=== PATIENT | female | born 2000 | race African-American/Black ===

== ENCOUNTER 2024-07-09 19:36 | Inpatient (IN) | payer OTHER ==
[~2024-07-09] VITALS: Ht 170.2 cm; Wt 108.8 kg
[2024-07-09 20:38] LABS: BASO # 0.1 10^3/uL (0.0-0.2); BASO % 0.5 % (0.0-1.0); EOS # 0.2 10^3/uL (0.0-0.5); EOS % 1.5 % (0.0-3.0); HEMATOCRIT 41.2 % (36.0-47.0); HEMOGLOBIN 14.7 g/dl (12.0-15.5); LYMPH % 26.7 % (24.0-44.0); MEAN CORPUSCULAR HEMOGLOBIN 31.1 pg (27.0-33.0); MEAN CORPUSCULAR HGB CONC 35.7 g/dl (32.0-36.5); MEAN CORPUSCULAR VOLUME 87.1 fl (80.0-96.0); MONO # 0.6 10^3/uL (0.0-0.8); MONO % 3.8 % (2.0-8.0); NEUTROPHILS # 10.1 10^3/uL (1.5-8.5); PLATELET COUNT, AUTOMATED 325 10^3/uL (150-450); RED BLOOD COUNT 4.73 10^6/uL (4.00-5.40); WHITE BLOOD COUNT 15.1 10^3/uL (4.0-10.0)
[2024-07-09 21:01] LABS: LIPASE 259 U/L (12-53)
[2024-07-09 21:32] LABS: ALBUMIN 3.9 G/DL (3.2-5.2); ALKALINE PHOSPHATASE 83 U/L (35-104); ALT/SGPT 30 U/L (7.0-40); AST/SGOT 25 U/L (<34); BILIRUBIN,DIRECT < 0.1 MG/DL (<0.4); BILIRUBIN,TOTAL 0.2 MG/DL (0.3-1.2); BLOOD UREA NITROGEN 8 MG/DL (9-23); CALCIUM LEVEL 9.5 MG/DL (8.5-10.1); CARBON DIOXIDE LEVEL 24 MMOL/L (20-31); CHLORIDE LEVEL 105 MMOL/L (98-107); GLOMERULAR FILTRATION RATE > 60.0 (>60); GLUCOSE, FASTING 122 MG/DL (60-100); POTASSIUM SERUM 4.1 MMOL/L (3.5-5.1); SODIUM LEVEL 138 MMOL/L (136-145); TOTAL PROTEIN 8.2 G/DL (5.7-8.2)
[2024-07-09] MEDS ORDERED: ISOVUE-370 76% 100ML VIAL As Ordered ONE (21:51)
[2024-07-09] MEDS: NS (Normal Saline) 0.9% 1,000 ML IV SCH (23:12)
[2024-07-09] MEDS: MORPHINE 2 MG/ML 1ML VIAL IV ONE (23:13)
[2024-07-09] MEDS: ONDANSETRON 4MG 2ML VIAL IV ONE (23:13)
[2024-07-09 23:31] LABS: HCG, SERUM QUANTITATIVE < 2.6 MIU/ML (<4.2)
[2024-07-10] MEDS ORDERED: NS (Normal Saline) 0.9% 1,000 ML IV SCH (01:00)
[2024-07-10 01:30] LABS: CHOLESTEROL LEVEL 278 MG/DL (<200); CHOLESTEROL RISK RATIO 9.65 (<5); HDL CHOLESTEROL 28.8 MG/DL (>40); NON-HDL-C 249.2 MG/DL; TRIGLYCERIDES LEVEL 2007 MG/DL (<150)
[2024-07-10] MEDS: MORPHINE 2 MG/ML 1ML VIAL IV ONE (01:52)
[2024-07-10 02:27] LABS: LDH LACTATE DEHYDROGENASE 358 U/L (120-246)
[2024-07-10 02:33] LABS: FREE T4 1.43 NG/DL (0.89-1.76); THYROID STIMULATING HORMONE 0.735 uIU/ML (0.55-4.78)
[2024-07-10] MEDS: ATORVASTATIN 20 MG TAB PO ONE (03:26)
[2024-07-10] MEDS: ASPIRIN 81MG CHEW TABLET PO ONE (03:27)
[2024-07-10] MEDS: KCL 20MEQ IN D5/0.45NS 1000ML 1,000 ML IV SCH ×3 (03:27→22:34)
[2024-07-10] MEDS: INSULIN REGULAR IN 0.9 % NACL 100 UNIT in IV 1 EA IV STA (03:34)
[2024-07-10] MEDS ORDERED: MOM 30ML SUSPENSION UDC PO PRN (04:10)
[2024-07-10] MEDS ORDERED: INSULIN IV RATE CHANGE DOCUMENTATION ML/HR XX SCH (04:10)
[2024-07-10] MEDS: INSULIN REGULAR IN 0.9 % NACL 100 UNIT in IV 1 EA IV SCH (05:07)
[2024-07-10 07:41] VITALS: BP 138/86; TEMP 98.7; O2SAT 98
[2024-07-10] MEDS: MORPHINE 2 MG/ML 1ML VIAL IV PRN (08:21)
[2024-07-10] MEDS ORDERED: MULT1TAB16 PO (08:48)
[2024-07-10] MEDS ORDERED: ASHW300C2 PO (08:48)
[2024-07-10] MEDS ORDERED: FERR325T82 PO (08:48)
[2024-07-10] MEDS ORDERED: ASCO1TAB5 PO (08:48)
[2024-07-10] MEDS ORDERED: HOME MED LIST COMPLETE! XX SCH (08:50)
[2024-07-10] MEDS: ENOXAPARIN 40MG/0.4ML SYRINGE (J1650 PER 10MG) SC SCH (09:39)
[2024-07-10 09:50] LABS: BLOOD UREA NITROGEN < 5 MG/DL (9-23); CALCIUM LEVEL 8.5 MG/DL (8.5-10.1); CARBON DIOXIDE LEVEL 23 MMOL/L (20-31); CHLORIDE LEVEL 106 MMOL/L (98-107); CREATININE FOR GFR 0.43 MG/DL (0.55-1.30); GLOMERULAR FILTRATION RATE > 60.0 (>60); GLUCOSE, FASTING 92 MG/DL (60-100); PHOSPHORUS LEVEL 2.6 MG/DL (2.5-4.9); POTASSIUM SERUM 3.7 MMOL/L (3.5-5.1); SODIUM LEVEL 138 MMOL/L (136-145); TRIGLYCERIDES LEVEL 1715 MG/DL (<150)
[2024-07-10] MEDS ORDERED: GLUCOSE 4 GM CHEW PO PRN (11:05)
[2024-07-10] MEDS ORDERED: GLUCAGON INJ 1MG VIAL SC PRN (11:05)
[2024-07-10] MEDS: ONDANSETRON 4MG 2ML VIAL IV PRN (11:40)
[2024-07-10] MEDS: MORPHINE 4 MG/ML 1ML VIAL IV PRN (11:41)
[2024-07-10 12:00] VITALS: BP 123/58; TEMP 98.2; O2SAT 97
[2024-07-10 13:15] LABS: BLOOD UREA NITROGEN < 5 MG/DL (9-23); CALCIUM LEVEL 8.3 MG/DL (8.5-10.1); CARBON DIOXIDE LEVEL 22 MMOL/L (20-31); CHLORIDE LEVEL 107 MMOL/L (98-107); GLOMERULAR FILTRATION RATE > 60.0 (>60); GLUCOSE, FASTING 100 MG/DL (60-100); PHOSPHORUS LEVEL 3.4 MG/DL (2.5-4.9); POTASSIUM SERUM 3.8 MMOL/L (3.5-5.1); SODIUM LEVEL 139 MMOL/L (136-145)
[2024-07-10] MEDS: POTASSIUM CHLORIDE 10MEQ SR TABLET PO ONE (15:59)
[2024-07-10 16:00] VITALS: BP 121/65; TEMP 98.2; O2SAT 99
[2024-07-10] MEDS: ACETAMINOPHEN 325 MG TAB PO PRN (17:04)
[2024-07-10 17:36] LABS: BLOOD UREA NITROGEN < 5 MG/DL (9-23); CALCIUM LEVEL 8.5 MG/DL (8.5-10.1); CARBON DIOXIDE LEVEL 24 MMOL/L (20-31); CHLORIDE LEVEL 107 MMOL/L (98-107); CREATININE FOR GFR 0.42 MG/DL (0.55-1.30); GLOMERULAR FILTRATION RATE > 60.0 (>60); GLUCOSE, FASTING 77 MG/DL (60-100); PHOSPHORUS LEVEL 3.5 MG/DL (2.5-4.9); POTASSIUM SERUM 3.9 MMOL/L (3.5-5.1); SODIUM LEVEL 140 MMOL/L (136-145); TRIGLYCERIDES LEVEL 829 MG/DL (<150)
[2024-07-10] MEDS: FENOFIBRATE 145MG TABLET (TRICOR) PO ONE (18:29)
[2024-07-10 20:04] VITALS: BP 139/75; TEMP 99.6; O2SAT 97
[2024-07-10] MEDS: POTASSIUM CHLORIDE 10MEQ SR TABLET PO SCH (20:52)
[2024-07-10 21:50] LABS: HEMOGLOBIN A1c 6.1 % (4.0-6.0)
[2024-07-10 21:59] LABS: BLOOD UREA NITROGEN < 5 MG/DL (9-23); CALCIUM LEVEL 8.6 MG/DL (8.5-10.1); CARBON DIOXIDE LEVEL 22 MMOL/L (20-31); CHLORIDE LEVEL 109 MMOL/L (98-107); CREATININE FOR GFR 0.48 MG/DL (0.55-1.30); GLOMERULAR FILTRATION RATE > 60.0 (>60); GLUCOSE, FASTING 91 MG/DL (60-100); PHOSPHORUS LEVEL 3.5 MG/DL (2.5-4.9); POTASSIUM SERUM 4.1 MMOL/L (3.5-5.1); SODIUM LEVEL 142 MMOL/L (136-145); TRIGLYCERIDES LEVEL 555 MG/DL (<150)
[2024-07-10] MEDS: DEXTROSE 50% 50ML SYRINGE IV PRN (22:33)
[2024-07-11 00:27] VITALS: BP 138/77; TEMP 101; O2SAT 99
[2024-07-11 02:01] LABS: CALCIUM LEVEL 9.1 MG/DL (8.5-10.1); CARBON DIOXIDE LEVEL 23 MMOL/L (20-31); CHLORIDE LEVEL 106 MMOL/L (98-107); CREATININE FOR GFR 0.49 MG/DL (0.55-1.30); GLOMERULAR FILTRATION RATE > 60.0 (>60); GLUCOSE, FASTING 63 MG/DL (60-100); PHOSPHORUS LEVEL 3.2 MG/DL (2.5-4.9); POTASSIUM SERUM 4.4 MMOL/L (3.5-5.1); SODIUM LEVEL 139 MMOL/L (136-145)
[2024-07-11 02:03] LABS: BLOOD UREA NITROGEN < 5 MG/DL (9-23); TRIGLYCERIDES LEVEL 416 MG/DL (<150)
[2024-07-11 02:15] VITALS: TEMP 100.3; O2SAT 96
[2024-07-11 04:00] VITALS: BP 125/63; TEMP 98.7; O2SAT 96
[2024-07-11 05:48] LABS: BLOOD UREA NITROGEN < 5 MG/DL (9-23); CALCIUM LEVEL 8.9 MG/DL (8.5-10.1); CARBON DIOXIDE LEVEL 24 MMOL/L (20-31); CHLORIDE LEVEL 107 MMOL/L (98-107); CREATININE FOR GFR 0.51 MG/DL (0.55-1.30); GLOMERULAR FILTRATION RATE > 60.0 (>60); GLUCOSE, FASTING 62 MG/DL (60-100); POTASSIUM SERUM 3.9 MMOL/L (3.5-5.1); SODIUM LEVEL 140 MMOL/L (136-145)
[2024-07-11 08:00] VITALS: BP 119/68; TEMP 99.4; O2SAT 98
[2024-07-11 11:27] VITALS: BP 123/68; TEMP 98.1; O2SAT 98
[2024-07-11] MEDS ORDERED: PERCOCET 5MG/325MG TAB PO PRN (12:10)
[2024-07-11 12:56] LABS: BASO # 0.1 10^3/uL (0.0-0.2); BASO % 0.4 % (0.0-1.0); EOS # 0.3 10^3/uL (0.0-0.5); EOS % 2.2 % (0.0-3.0); LYMPH # 3.9 10^3/uL (1.5-5.0); LYMPH % 30.5 % (24.0-44.0); MEAN CORPUSCULAR HEMOGLOBIN 29.4 pg (27.0-33.0); MEAN CORPUSCULAR HGB CONC 33.4 g/dl (32.0-36.5); MEAN CORPUSCULAR VOLUME 87.8 fl (80.0-96.0); MONO # 0.9 10^3/uL (0.0-0.8); MONO % 6.8 % (2.0-8.0); NEUTROPHILS # 7.6 10^3/uL (1.5-8.5); NEUTROPHILS % 59.6 % (36.0-66.0); PLATELET COUNT, AUTOMATED 279 10^3/uL (150-450); RED BLOOD COUNT 3.95 10^6/uL (4.00-5.40); WHITE BLOOD COUNT 12.7 10^3/uL (4.0-10.0)
[2024-07-11 12:58] LABS: HEMATOCRIT 34.7 % (36.0-47.0); HEMOGLOBIN 11.6 g/dl (12.0-15.5)
[2024-07-11 13:20] LABS: BLOOD UREA NITROGEN < 5 MG/DL (9-23); CALCIUM LEVEL 8.9 MG/DL (8.5-10.1); CARBON DIOXIDE LEVEL 24 MMOL/L (20-31); CHLORIDE LEVEL 107 MMOL/L (98-107); CREATININE FOR GFR 0.53 MG/DL (0.55-1.30); GLOMERULAR FILTRATION RATE > 60.0 (>60); GLUCOSE, FASTING 98 MG/DL (60-100); PHOSPHORUS LEVEL 4.3 MG/DL (2.5-4.9); POTASSIUM SERUM 4.2 MMOL/L (3.5-5.1); SODIUM LEVEL 141 MMOL/L (136-145)
[2024-07-11] MEDS: ATORVASTATIN 20 MG TAB PO SCH (13:39)
[2024-07-11] MEDS: FENOFIBRATE 145MG TABLET (TRICOR) PO SCH (16:16)
[2024-07-11] MEDS ORDERED: FENO145T7 PO (17:52)
[2024-07-11] MEDS ORDERED: ATOR40TA75 PO (17:52)
[2024-07-11] MEDS ORDERED: LOVA1CAP17 PO (17:52)
[2024-07-11 18:44] VITALS: BP 132/79; TEMP 96.8
[2024-07-12 04:00] VITALS: BP 126/77; TEMP 97; O2SAT 99
[2024-07-12 11:30] VITALS: BP 130/78; TEMP 97.9; O2SAT 97
== END 2024-07-12 12:55 | disposition home health service (06) | DRG 438 ==
LOC: M ED 19:36 → M ED INP 07-10 04:09 → M ICU 07-10 07:35 → M MS4PR 07-11 11:20 → M MS5PR 07-11 18:37
PROVIDERS: ADMIT Internal Medicine Pulmonary Disease; ATTEND Internal Medicine
DX: K85.90 Acute pancreatitis without necrosis or infection, unspecified (principal); U07.1 COVID-19; R73.03 Prediabetes; E78.1 Pure hyperglyceridemia

== ENCOUNTER 2024-08-23 00:13 | Inpatient (IN) | payer OTHER ==
[~2024-08-23] VITALS: Ht 170.2 cm; Wt 107.0 kg
[~2024-08-23 00:13] MED LIST: ASCO1TAB5 PO; ASHW300C2 PO; ATOR40TA75 PO; FENO145T7 PO; FERR325T82 PO; LOVA1CAP17 PO; MULT1TAB16 PO
[2024-08-23 01:20] LABS: BASO # 0.1 10^3/uL (0.0-0.2); BASO % 0.4 % (0.0-1.0); HEMATOCRIT 39.6 % (36.0-47.0); HEMOGLOBIN 14.2 g/dl (12.0-15.5); LYMPH % 16.2 % (24.0-44.0); MEAN CORPUSCULAR HEMOGLOBIN 30.6 pg (27.0-33.0); MEAN CORPUSCULAR HGB CONC 35.9 g/dl (32.0-36.5); MEAN CORPUSCULAR VOLUME 85.3 fl (80.0-96.0); MONO # 0.5 10^3/uL (0.0-0.8); MONO % 4.3 % (2.0-8.0); NEUTROPHILS % 78.7 % (36.0-66.0); PLATELET COUNT, AUTOMATED 373 10^3/uL (150-450); RED BLOOD COUNT 4.64 10^6/uL (4.00-5.40); WHITE BLOOD COUNT 12.6 10^3/uL (4.0-10.0)
[2024-08-23 01:35] LABS: LIPASE 311 U/L (12-53)
[2024-08-23 01:40] LABS: ALKALINE PHOSPHATASE 69 U/L (35-104); ALT/SGPT 27 U/L (7.0-40); BILIRUBIN,DIRECT < 0.1 MG/DL (<0.4); BILIRUBIN,TOTAL 0.3 MG/DL (0.3-1.2); BLOOD UREA NITROGEN 8 MG/DL (9-23); CALCIUM LEVEL 8.4 MG/DL (8.5-10.1); CARBON DIOXIDE LEVEL 20 MMOL/L (20-31); CHLORIDE LEVEL 102 MMOL/L (98-107); CREATININE FOR GFR 0.41 MG/DL (0.55-1.30); GLOMERULAR FILTRATION RATE > 60.0 (>60); GLUCOSE, FASTING 161 MG/DL (60-100); POTASSIUM SERUM 3.8 MMOL/L (3.5-5.1); SODIUM LEVEL 133 MMOL/L (136-145); TOTAL PROTEIN 7.9 G/DL (5.7-8.2)
[2024-08-23 01:48] LABS: HCG, SERUM QUALITATIVE NEGATIVE (NEGATIVE)
[2024-08-23] MEDS ORDERED: ISOVUE-370 76% 100ML VIAL As Ordered ONE (03:48)
[2024-08-23] MEDS: ONDANSETRON 4MG 2ML VIAL IV ONE (04:11)
[2024-08-23] MEDS: MORPHINE 4 MG/ML 1ML VIAL IV ONE (04:11)
[2024-08-23] MEDS: NS (Normal Saline) 0.9% 1,000 ML IV ONE (04:29)
[2024-08-23] MEDS: HYDROMORPHONE HCL 0.5 MG/ 0.5 ML SYRINGE IV PRN (05:12)
[2024-08-23] MEDS: NS (Normal Saline) 0.9% 1,000 ML IV SCH (05:46)
[2024-08-23] MEDS: cefTRIAXone SOD 1 GM in DEXTROSE 5% (D5W) ADV/MINI-BAG 50 ML IV ONE (05:46)
[2024-08-23 06:41] LABS: AST/SGOT 23 U/L (<34)
[2024-08-23 06:42] LABS: CHOLESTEROL LEVEL 314 MG/DL (<200); HDL CHOLESTEROL 26.6 MG/DL (>40); NON-HDL-C 287.4 MG/DL; TRIGLYCERIDES LEVEL 1756 MG/DL (<150)
[2024-08-23] MEDS ORDERED: INSULIN IV RATE CHANGE DOCUMENTATION ML/HR XX SCH ×3 (07:10→10:45)
[2024-08-23] MEDS ORDERED: INSULIN REGULAR IN 0.9 % NACL 100 UNIT in IV 1 EA IV SCH (07:10)
[2024-08-23] MEDS: INSULIN REGULAR IN 0.9 % NACL 100 UNIT in IV 1 EA IV SCH ×2 (08:00→11:25)
[2024-08-23] MEDS ORDERED: GLUCAGON INJ 1MG VIAL SC PRN ×2 (08:10→18:45)
[2024-08-23] MEDS ORDERED: GLUCOSE 4 GM CHEW PO PRN ×2 (08:10→18:45)
[2024-08-23] MEDS ORDERED: DEXTROSE 50% 50ML SYRINGE IV PRN ×3 (08:10→18:45)
[2024-08-23] MEDS: LR 1,000 ML IV SCH (08:19)
[2024-08-23] MEDS ORDERED: FENO145T7 PO (08:26)
[2024-08-23] MEDS ORDERED: MACR100C43 PO (08:26)
[2024-08-23] MEDS ORDERED: ATOR40TA75 PO (08:26)
[2024-08-23] MEDS ORDERED: HOME MED LIST COMPLETE! XX SCH (08:30)
[2024-08-23] MEDS: ENOXAPARIN 40MG/0.4ML SYRINGE (J1650 PER 10MG) SC SCH (08:57)
[2024-08-23 09:30] VITALS: BP 130/65; TEMP 98.8; O2SAT 96
[2024-08-23] MEDS: KETOROLAC 30 MG/ML 1ML VIAL IV PRN (09:39)
[2024-08-23] MEDS: ONDANSETRON 4MG 2ML VIAL IV PRN (09:39)
[2024-08-23] MEDS: D5W/0.9% SODIUM CHLORIDE 1,000 ML IV SCH (11:24)
[2024-08-23] MEDS: ATORVASTATIN 20 MG TAB PO SCH (11:24)
[2024-08-23] MEDS: FENOFIBRATE 145MG TABLET (TRICOR) PO SCH (11:24)
[2024-08-23 12:00] VITALS: BP 113/56; TEMP 98.9; O2SAT 96
[2024-08-23 12:42] LABS: LIPASE 229 U/L (12-53); TRIGLYCERIDES LEVEL 500 MG/DL (<150)
[2024-08-23 12:46] LABS: ALBUMIN 3.1 G/DL (3.2-5.2); BLOOD UREA NITROGEN 7 MG/DL (9-23); CALCIUM LEVEL 7.9 MG/DL (8.5-10.1); CARBON DIOXIDE LEVEL 24 MMOL/L (20-31); CHLORIDE LEVEL 108 MMOL/L (98-107); CREATININE FOR GFR 0.58 MG/DL (0.55-1.30); GLOMERULAR FILTRATION RATE > 60.0 (>60); GLUCOSE, FASTING 83 MG/DL (60-100); PHOSPHORUS LEVEL 3.1 MG/DL (2.5-4.9); POTASSIUM SERUM 3.4 MMOL/L (3.5-5.1); SODIUM LEVEL 140 MMOL/L (136-145)
[2024-08-23 12:47] LABS: AMYLASE 216 U/L (30-118)
[2024-08-23] MEDS: KCL 20MEQ IN D5/NS 1000ML 1,000 ML IV SCH (13:46)
[2024-08-23] MEDS: MORPHINE 2 MG/ML 1ML VIAL IV PRN (15:17)
[2024-08-23 16:15] VITALS: BP 118/61; TEMP 100.2; O2SAT 94
[2024-08-23] MEDS: ACETAMINOPHEN 325 MG TAB PO PRN (17:13)
[2024-08-23 18:39] LABS: LIPASE 218 U/L (12-53); TRIGLYCERIDES LEVEL 403 MG/DL (<150)
[2024-08-23 18:45] LABS: AMYLASE 221 U/L (30-118)
[2024-08-23 20:00] VITALS: BP 109/61; TEMP 99.2; O2SAT 96
[2024-08-23] MEDS: INSULIN LISPRO (NovoLOG) PER UNIT SC SCH (20:15)
[2024-08-24] VITALS (8 sets, daily range): BP systolic 118–145; BP diastolic 65–77; TEMP 98.2–101.8; O2SAT 93–98
[2024-08-24 01:07] LABS: TRIGLYCERIDES LEVEL 262 MG/DL (<150)
[2024-08-24 01:08] LABS: LIPASE 187 U/L (12-53)
[2024-08-24 01:09] LABS: AMYLASE 173 U/L (30-118)
[2024-08-24 01:15] LABS: ALBUMIN 2.8 G/DL (3.2-5.2); BLOOD UREA NITROGEN 5 MG/DL (9-23); CALCIUM LEVEL 7.3 MG/DL (8.5-10.1); CARBON DIOXIDE LEVEL 23 MMOL/L (20-31); CHLORIDE LEVEL 110 MMOL/L (98-107); CREATININE FOR GFR 0.69 MG/DL (0.55-1.30); GLOMERULAR FILTRATION RATE > 60.0 (>60); GLUCOSE, FASTING 140 MG/DL (60-100); PHOSPHORUS LEVEL 1.4 MG/DL (2.5-4.9); POTASSIUM SERUM 3.8 MMOL/L (3.5-5.1); SODIUM LEVEL 141 MMOL/L (136-145)
[2024-08-24] MEDS: cefTRIAXone SOD 1 GM in DEXTROSE 5% (D5W) ADV/MINI-BAG 50 ML IV SCH (04:55)
[2024-08-24] MEDS: NEUTRA-PHOS 1.5 GM PACKET PO SCH (08:22)
[2024-08-24 08:26] LABS: BASO % 0.2 % (0.0-1.0); EOS # 0.1 10^3/uL (0.0-0.5); EOS % 1.1 % (0.0-3.0); HEMATOCRIT 32.9 % (36.0-47.0); LYMPH # 2.2 10^3/uL (1.5-5.0); LYMPH % 19.2 % (24.0-44.0); MEAN CORPUSCULAR HEMOGLOBIN 29.4 pg (27.0-33.0); MEAN CORPUSCULAR HGB CONC 33.7 g/dl (32.0-36.5); MEAN CORPUSCULAR VOLUME 87.3 fl (80.0-96.0); MONO # 0.7 10^3/uL (0.0-0.8); MONO % 6.3 % (2.0-8.0); NEUTROPHILS # 8.2 10^3/uL (1.5-8.5); NEUTROPHILS % 72.8 % (36.0-66.0); PLATELET COUNT, AUTOMATED 259 10^3/uL (150-450); RED BLOOD COUNT 3.77 10^6/uL (4.00-5.40); WHITE BLOOD COUNT 11.3 10^3/uL (4.0-10.0)
[2024-08-24 08:28] LABS: HEMOGLOBIN 11.1 g/dl (12.0-15.5)
[2024-08-24] MEDS: LR 1,000 ML IV SCH (08:36)
[2024-08-24 09:05] LABS: ALBUMIN 2.7 G/DL (3.2-5.2); ALKALINE PHOSPHATASE 48 U/L (35-104); ALT/SGPT 14 U/L (7.0-40); AST/SGOT 15 U/L (<34); BILIRUBIN,TOTAL 0.4 MG/DL (0.3-1.2); BLOOD UREA NITROGEN < 5 MG/DL (9-23); CALCIUM LEVEL 7.6 MG/DL (8.5-10.1); CARBON DIOXIDE LEVEL 20 MMOL/L (20-31); CHLORIDE LEVEL 111 MMOL/L (98-107); CREATININE FOR GFR 0.56 MG/DL (0.55-1.30); GLOMERULAR FILTRATION RATE > 60.0 (>60); GLUCOSE, FASTING 160 MG/DL (60-100); MAGNESIUM LEVEL 1.7 MG/DL (1.8-2.4); POTASSIUM SERUM 3.9 MMOL/L (3.5-5.1); SODIUM LEVEL 140 MMOL/L (136-145); TOTAL PROTEIN 6.1 G/DL (5.7-8.2)
[2024-08-24 09:08] LABS: KETONE, URINE AUTO RFX NEGATIVE (NEGATIVE); LEUKOCYTE ESTERASE UR AUTO RFX NEGATIVE (NEGATIVE); MUCUS, URINE RFX SMALL (NEGATIVE); NITRITE, URINE AUTO RFX NEGATIVE (NEGATIVE); RBC, URINE AUTO RFX 0 /HPF (0-3); SQUAM EPITHELIAL CELL UR AURFX 2 /HPF (0-6); WBC, URINE AUTO RFX 2 /HPF (0-3)
[2024-08-24 09:43] LABS: HEMOGLOBIN A1c 6.2 % (4.0-6.0)
[2024-08-24] MEDS: MAG SULF 1GM/100ML (MAG RUN) 1 GM in IV 1 EA IV SCH (11:10)
[2024-08-24 12:58] LABS: TRIGLYCERIDES LEVEL 287 MG/DL (<150)
[2024-08-24 13:00] LABS: AMYLASE 165 U/L (30-118)
[2024-08-24 13:01] LABS: BLOOD UREA NITROGEN < 5 MG/DL (9-23); CALCIUM LEVEL 8.3 MG/DL (8.5-10.1); CARBON DIOXIDE LEVEL 21 MMOL/L (20-31); CHLORIDE LEVEL 111 MMOL/L (98-107); CREATININE FOR GFR 0.61 MG/DL (0.55-1.30); GLOMERULAR FILTRATION RATE > 60.0 (>60); GLUCOSE, FASTING 80 MG/DL (60-100); PHOSPHORUS LEVEL 1.8 MG/DL (2.5-4.9); POTASSIUM SERUM 3.8 MMOL/L (3.5-5.1); SODIUM LEVEL 141 MMOL/L (136-145)
[2024-08-24] MEDS: MORPHINE 2 MG/ML 1ML VIAL IV PRN (13:50)
[2024-08-24] MEDS ORDERED: hydrOXYzine 50 MG TAB PO PRN (15:35)
[2024-08-25 03:46] VITALS: BP 142/74; TEMP 99.5; O2SAT 97
[2024-08-25] MEDS: LevoFLOXacin 750 MG TABLET PO SCH (05:49)
[2024-08-25 05:58] VITALS: TEMP 100.6; O2SAT 96
[2024-08-25 07:16] LABS: BASO % 0.2 % (0.0-1.0); EOS # 0.3 10^3/uL (0.0-0.5); EOS % 2.4 % (0.0-3.0); HEMATOCRIT 29.9 % (36.0-47.0); LYMPH # 3.2 10^3/uL (1.5-5.0); LYMPH % 25.9 % (24.0-44.0); MEAN CORPUSCULAR HEMOGLOBIN 28.8 pg (27.0-33.0); MEAN CORPUSCULAR HGB CONC 33.4 g/dl (32.0-36.5); MEAN CORPUSCULAR VOLUME 86.2 fl (80.0-96.0); MONO # 0.7 10^3/uL (0.0-0.8); MONO % 5.7 % (2.0-8.0); NEUTROPHILS % 65.4 % (36.0-66.0); PLATELET COUNT, AUTOMATED 259 10^3/uL (150-450); RED BLOOD COUNT 3.47 10^6/uL (4.00-5.40); WHITE BLOOD COUNT 12.2 10^3/uL (4.0-10.0)
[2024-08-25 07:32] VITALS: BP 136/81; TEMP 99.4; O2SAT 96
[2024-08-25 07:43] LABS: ALBUMIN 2.6 G/DL (3.2-5.2); ALKALINE PHOSPHATASE 67 U/L (35-104); ALT/SGPT 15 U/L (7.0-40); AST/SGOT 16 U/L (<34); BILIRUBIN,DIRECT 0.2 MG/DL (<0.4); BILIRUBIN,TOTAL 0.6 MG/DL (0.3-1.2); BLOOD UREA NITROGEN < 5 MG/DL (9-23); CALCIUM LEVEL 8.3 MG/DL (8.5-10.1); CARBON DIOXIDE LEVEL 24 MMOL/L (20-31); CHLORIDE LEVEL 110 MMOL/L (98-107); CHOLESTEROL LEVEL 170 MG/DL (<200); CHOLESTEROL RISK RATIO 9.09 (<5); GLOMERULAR FILTRATION RATE > 60.0 (>60); GLUCOSE, FASTING 106 MG/DL (60-100); HDL CHOLESTEROL 18.7 MG/DL (>40); LDL CHOLESTEROL 92.7 MG/DL (<100); MAGNESIUM LEVEL 1.8 MG/DL (1.8-2.4); NON-HDL-C 151.3 MG/DL; POTASSIUM SERUM 3.6 MMOL/L (3.5-5.1); SODIUM LEVEL 141 MMOL/L (136-145); TOTAL PROTEIN 6.1 G/DL (5.7-8.2); TRIGLYCERIDES LEVEL 293 MG/DL (<150)
[2024-08-25] MEDS: ATORVASTATIN 20 MG TAB PO SCH (08:15)
[2024-08-25 10:35] LABS: PHOSPHORUS LEVEL 2.3 MG/DL (2.5-4.9)
[2024-08-25] MEDS: PANTOPRAZOLE 40MG TAB (PROTONIX) PO SCH (10:37)
[2024-08-25] MEDS ORDERED: LOVA1CAP17 PO (11:21)
[2024-08-25 12:00] VITALS: BP 136/74; TEMP 98; O2SAT 96
[2024-08-25 19:32] VITALS: BP 132/73; TEMP 98.3; O2SAT 96
[2024-08-25 23:06] VITALS: BP 133/66; TEMP 100.6; TEMP 101; O2SAT 98
[2024-08-26] VITALS (9 sets, daily range): BP systolic 121–140; BP diastolic 61–74; TEMP 96.6–101.4; O2SAT 95–97
[2024-08-26 05:46] LABS: BASO % 0.3 % (0.0-1.0); EOS # 0.3 10^3/uL (0.0-0.5); EOS % 2.2 % (0.0-3.0); HEMATOCRIT 31.6 % (36.0-47.0); HEMOGLOBIN 10.6 g/dl (12.0-15.5); LYMPH # 3.4 10^3/uL (1.5-5.0); LYMPH % 26.8 % (24.0-44.0); MEAN CORPUSCULAR HEMOGLOBIN 29.1 pg (27.0-33.0); MEAN CORPUSCULAR HGB CONC 33.5 g/dl (32.0-36.5); MEAN CORPUSCULAR VOLUME 86.8 fl (80.0-96.0); MONO # 0.9 10^3/uL (0.0-0.8); MONO % 6.8 % (2.0-8.0); NEUTROPHILS # 7.9 10^3/uL (1.5-8.5); NEUTROPHILS % 62.9 % (36.0-66.0); PLATELET COUNT, AUTOMATED 298 10^3/uL (150-450); RED BLOOD COUNT 3.64 10^6/uL (4.00-5.40); WHITE BLOOD COUNT 12.6 10^3/uL (4.0-10.0)
[2024-08-26 06:11] LABS: BLOOD UREA NITROGEN 7 MG/DL (9-23); CALCIUM LEVEL 8.4 MG/DL (8.5-10.1); CARBON DIOXIDE LEVEL 22 MMOL/L (20-31); CHLORIDE LEVEL 108 MMOL/L (98-107); CHOLESTEROL LEVEL 154 MG/DL (<200); CREATININE FOR GFR 0.61 MG/DL (0.55-1.30); GLOMERULAR FILTRATION RATE > 60.0 (>60); GLUCOSE, FASTING 117 MG/DL (60-100); HDL CHOLESTEROL 20.8 MG/DL (>40); LDL CHOLESTEROL 90.8 MG/DL (<100); MAGNESIUM LEVEL 1.8 MG/DL (1.8-2.4); NON-HDL-C 133.2 MG/DL; PHOSPHORUS LEVEL 3.8 MG/DL (2.5-4.9); POTASSIUM SERUM 3.4 MMOL/L (3.5-5.1); SODIUM LEVEL 141 MMOL/L (136-145); TRIGLYCERIDES LEVEL 212 MG/DL (<150)
[2024-08-26] MEDS: POTASSIUM CHLORIDE 10MEQ SR TABLET PO ONE (07:53)
[2024-08-26 11:20] LABS: RSV AMPLIFICATION NEGATIVE (NEGATIVE)
[2024-08-26 13:56] LABS: PROCALCITONIN 0.06 ng/ml
[2024-08-26] MEDS ORDERED: AMPICILLIN SOD/SULBACTAM SOD 3 GM in DEXTROSE 5% (D5W) MINI-BAG PLU 100 ML IV SCH (14:00)
[2024-08-26 14:08] LABS: PROCALCITONIN 0.12 ng/ml
[2024-08-26 14:08] LABS: PROCALCITONIN 0.09 ng/ml
[2024-08-26 14:09] LABS: C REACTIVE PROTEIN QUANTITATIV 12.28 MG/DL (<1.0)
[2024-08-26 14:11] LABS: PROCALCITONIN 0.14 ng/ml
[2024-08-26 14:20] LABS: C REACTIVE PROTEIN QUANTITATIV 15.79 MG/DL (<1.0)
[2024-08-26 14:20] LABS: C REACTIVE PROTEIN QUANTITATIV 15.02 MG/DL (<1.0)
[2024-08-26] MEDS ORDERED: ACETAMINOPHEN 325 MG TAB PO PRN (14:30)
[2024-08-26] MEDS: ACETAMINOPHEN 500 MG TAB PO SCH (15:00)
[2024-08-26] MEDS: ACETAMINOPHEN 325 MG TAB PO PRN (20:45)
[2024-08-27] VITALS (7 sets, daily range): BP systolic 119–139; BP diastolic 72–87; TEMP 98.1–101.2; O2SAT 96–99
[2024-08-27 05:02] LABS: BASO # 0.1 10^3/uL (0.0-0.2); BASO % 0.4 % (0.0-1.0); EOS # 0.3 10^3/uL (0.0-0.5); EOS % 2.2 % (0.0-3.0); HEMATOCRIT 31.1 % (36.0-47.0); HEMOGLOBIN 10.6 g/dl (12.0-15.5); LYMPH # 3.3 10^3/uL (1.5-5.0); LYMPH % 22.7 % (24.0-44.0); MEAN CORPUSCULAR HEMOGLOBIN 29.3 pg (27.0-33.0); MEAN CORPUSCULAR HGB CONC 34.1 g/dl (32.0-36.5); MEAN CORPUSCULAR VOLUME 85.9 fl (80.0-96.0); MONO # 1.1 10^3/uL (0.0-0.8); MONO % 7.3 % (2.0-8.0); NEUTROPHILS # 9.5 10^3/uL (1.5-8.5); NEUTROPHILS % 66.1 % (36.0-66.0); PLATELET COUNT, AUTOMATED 338 10^3/uL (150-450); RED BLOOD COUNT 3.62 10^6/uL (4.00-5.40); WHITE BLOOD COUNT 14.4 10^3/uL (4.0-10.0)
[2024-08-27 05:21] LABS: BLOOD UREA NITROGEN 8 MG/DL (9-23); CALCIUM LEVEL 8.6 MG/DL (8.5-10.1); CARBON DIOXIDE LEVEL 21 MMOL/L (20-31); CHLORIDE LEVEL 106 MMOL/L (98-107); CREATININE FOR GFR 0.59 MG/DL (0.55-1.30); GLOMERULAR FILTRATION RATE > 60.0 (>60); GLUCOSE, FASTING 127 MG/DL (60-100); MAGNESIUM LEVEL 1.8 MG/DL (1.8-2.4); POTASSIUM SERUM 3.8 MMOL/L (3.5-5.1); SODIUM LEVEL 139 MMOL/L (136-145)
[2024-08-27 05:42] LABS: C REACTIVE PROTEIN QUANTITATIV 12.48 MG/DL (<1.0)
[2024-08-28 03:12] VITALS: BP 140/86; TEMP 99.8; O2SAT 96
[2024-08-28 04:15] VITALS: TEMP 99.3
[2024-08-28 07:31] LABS: BASO # 0.1 10^3/uL (0.0-0.2); BASO % 0.4 % (0.0-1.0); EOS # 0.3 10^3/uL (0.0-0.5); EOS % 2.1 % (0.0-3.0); HEMATOCRIT 32.9 % (36.0-47.0); HEMOGLOBIN 11.1 g/dl (12.0-15.5); LYMPH # 3.8 10^3/uL (1.5-5.0); MEAN CORPUSCULAR HEMOGLOBIN 29.2 pg (27.0-33.0); MEAN CORPUSCULAR HGB CONC 33.7 g/dl (32.0-36.5); MEAN CORPUSCULAR VOLUME 86.6 fl (80.0-96.0); MONO # 0.9 10^3/uL (0.0-0.8); MONO % 5.8 % (2.0-8.0); NEUTROPHILS # 10.5 10^3/uL (1.5-8.5); NEUTROPHILS % 66.1 % (36.0-66.0); PLATELET COUNT, AUTOMATED 394 10^3/uL (150-450); WHITE BLOOD COUNT 15.9 10^3/uL (4.0-10.0)
[2024-08-28 07:33] VITALS: BP 118/65; TEMP 98.1; O2SAT 98
[2024-08-28 07:59] LABS: BLOOD UREA NITROGEN 12 MG/DL (9-23); CALCIUM LEVEL 8.7 MG/DL (8.5-10.1); CARBON DIOXIDE LEVEL 23 MMOL/L (20-31); CHLORIDE LEVEL 105 MMOL/L (98-107); CREATININE FOR GFR 0.64 MG/DL (0.55-1.30); GLOMERULAR FILTRATION RATE > 60.0 (>60); GLUCOSE, FASTING 103 MG/DL (60-100); POTASSIUM SERUM 4.1 MMOL/L (3.5-5.1); SODIUM LEVEL 141 MMOL/L (136-145)
[2024-08-28 08:32] LABS: CHOLESTEROL LEVEL 155 MG/DL (<200); CHOLESTEROL RISK RATIO 7.82 (<5); HDL CHOLESTEROL 19.8 MG/DL (>40); LDL CHOLESTEROL 95.4 MG/DL (<100); NON-HDL-C 135.2 MG/DL; TRIGLYCERIDES LEVEL 199 MG/DL (<150)
[2024-08-28 08:44] LABS: C REACTIVE PROTEIN QUANTITATIV 12.26 MG/DL (<1.0)
[2024-08-28] MEDS ORDERED: ACET-683 PO (15:30)
[2024-08-28] MEDS ORDERED: FENO145T7 PO (15:30)
[2024-08-28] MEDS ORDERED: ATOR80TA59 PO (15:31)
[2024-08-28 16:00] VITALS: BP 136/64; TEMP 98; O2SAT 100
== END 2024-08-28 17:05 | disposition home or self-care (01) | DRG 438 ==
LOC: EDBD 00:13 → M ED 00:13 → M ED INP 07:36 → M ICU 09:16 → M PCU 08-24 16:43
PROVIDERS: ADMIT Internal Medicine Pulmonary Disease; ATTEND Internal Medicine
DX: K85.90 Acute pancreatitis without necrosis or infection, unspecified (principal); J18.9 Pneumonia, unspecified organism; J98.11 Atelectasis; E87.6 Hypokalemia; F41.9 Anxiety disorder, unspecified; E83.42 Hypomagnesemia; E78.1 Pure hyperglyceridemia; E83.39 Other disorders of phosphorus metabolism; R73.03 Prediabetes; F17.290 Nicotine dependence, other tobacco product, uncomplicated; Z79.899 Other long term (current) drug therapy; D64.9 Anemia, unspecified; K21.9 Gastro-esophageal reflux disease without esophagitis

== ENCOUNTER 2024-09-02 19:23 | Emergency (ER) | payer OTHER ==
[~2024-09-02] VITALS: Ht 170.2 cm; Wt 105.2 kg
[~2024-09-02 19:23] MED LIST changes: +ACET-683 PO; +ATOR80TA59 PO; +MACR100C43 PO
[2024-09-02 19:28] VITALS: TEMP 98.5
[2024-09-02 19:59] LABS: KETONE, URINE AUTO RFX NEGATIVE (NEGATIVE); LEUKOCYTE ESTERASE UR AUTO RFX NEGATIVE (NEGATIVE); NITRITE, URINE AUTO RFX NEGATIVE (NEGATIVE); RBC, URINE AUTO RFX 0 /HPF (0-3); SQUAM EPITHELIAL CELL UR AURFX 0 /HPF (0-6); WBC, URINE AUTO RFX 1 /HPF (0-3)
[2024-09-02 23:36] VITALS: BP 126/77; O2SAT 98
== END 2024-09-02 23:38 | disposition home or self-care (01) ==
LOC: M ED 19:23
DX: R31.9 Hematuria, unspecified (principal); Z97.5 Presence of (intrauterine) contraceptive device; F17.200 Nicotine dependence, unspecified, uncomplicated; Z79.899 Other long term (current) drug therapy

== ENCOUNTER 2025-02-20 23:22 | Inpatient (IN) | payer OTHER ==
[~2025-02-20] VITALS: Ht 170.2 cm; Wt 113.8 kg
[2025-02-20] MEDS ORDERED: VITA1CAP25 PO (23:37)
[2025-02-20] MEDS ORDERED: METF-838 PO (23:37)
[2025-02-21] VITALS (7 sets, daily range): BP systolic 125–129; BP diastolic 68–97; TEMP 97.3–101.8; O2SAT 85–100
[2025-02-21 01:06] LABS: BASO # 0.1 10^3/uL (0.0-0.2); BASO % 0.4 % (0.0-1.0); EOS # 0.2 10^3/uL (0.0-0.5); EOS % 1.2 % (0.0-3.0); LYMPH # 3.8 10^3/uL (1.5-5.0); LYMPH % 27.4 % (24.0-44.0); MONO # 0.6 10^3/uL (0.0-0.8); MONO % 4.1 % (2.0-8.0); NEUTROPHILS # 9.1 10^3/uL (1.5-8.5); NEUTROPHILS % 66.5 % (36.0-66.0); PLATELET COUNT, AUTOMATED 358 10^3/uL (150-450)
[2025-02-21] MEDS: ONDANSETRON 4MG 2ML VIAL IV ONE (01:22)
[2025-02-21] MEDS: KETOROLAC 30 MG/ML 1 ML VIAL IV ONE (01:22)
[2025-02-21] MEDS: NS (Normal Saline) 0.9% 1,000 ML IV ONE ×2 (01:23→08:42)
[2025-02-21 02:03] LABS: AST/SGOT 52 U/L (<34); CALCIUM LEVEL 8.8 MG/DL (8.5-10.1); CARBON DIOXIDE LEVEL 21 MMOL/L (20-31); CHLORIDE LEVEL 100 MMOL/L (98-107); CREATININE FOR GFR 0.33 MG/DL (0.55-1.30); GLOMERULAR FILTRATION RATE > 90.0 (>60); POTASSIUM SERUM 4.8 MMOL/L (3.5-5.1); SODIUM LEVEL 130 MMOL/L (136-145)
[2025-02-21 02:27] LABS: ALT/SGPT 47 U/L (7.0-40)
[2025-02-21] MEDS ORDERED: ISOVUE-370 76% 100 ML VIAL As Ordered ONE (02:33)
[2025-02-21] MEDS: MORPHINE 4 MG/ML 1 ML VIAL IV PRN ×2 (02:40→11:26)
[2025-02-21] MEDS: NS (Normal Saline) 0.9% 1,000 ML IV SCH (03:26)
[2025-02-21] MEDS ORDERED: HYDROMORPHONE HCL 0.5 MG/0.5 ML SYRINGE IV PRN (05:10)
[2025-02-21] MEDS: ACETAMINOPHEN *IV* 1,000 MG in IV 1 EA IV ONE (05:34)
[2025-02-21] MEDS ORDERED: GLUCAGON INJ 1 MG VIAL SC PRN (05:35)
[2025-02-21] MEDS ORDERED: GLUCOSE 4 GM CHEW PO PRN (05:35)
[2025-02-21] MEDS ORDERED: KETOROLAC 30 MG/ML 1 ML VIAL IV PRN (05:35)
[2025-02-21] MEDS ORDERED: DEXTROSE 50% 50 ML SYRINGE IV PRN (05:35)
[2025-02-21] MEDS ORDERED: MOM 30 ML SUSPENSION UDC PO PRN (05:35)
[2025-02-21] MEDS ORDERED: MAALOX 30 ML SUSP *UDC PO PRN (05:35)
[2025-02-21] MEDS: HYDROMORPHONE HCL 0.5 MG/0.5 ML SYRINGE IV PRN ×2 (06:00→13:32)
[2025-02-21] MEDS: LR 1,000 ML IV SCH ×2 (06:01→08:42)
[2025-02-21 07:25] LABS: PLATELET COUNT, AUTOMATED 309 10^3/uL (150-450)
[2025-02-21] MEDS ORDERED: INSULIN LISPRO (NovoLOG) PER UNIT SC SCH (07:30)
[2025-02-21 07:37] LABS: INR 0.86
[2025-02-21] MEDS ORDERED: NALOXONE INJ 0.4 MG/1 ML VIAL IV PRN (07:45)
[2025-02-21] MEDS ORDERED: OMEG12004 PO (08:05)
[2025-02-21] MEDS ORDERED: ATOR80TA59 PO (08:05)
[2025-02-21] MEDS ORDERED: HOME MED LIST COMPLETE! XX SCH (08:05)
[2025-02-21] MEDS ORDERED: TRIC145T22 PO (08:05)
[2025-02-21] MEDS: HYDROMORPHONE HCL 0.5 MG/0.5 ML SYRINGE IV ONE (08:41)
[2025-02-21] MEDS: INSULIN LISPRO (NovoLOG) PER UNIT SC SCH (08:41)
[2025-02-21] MEDS: KETOROLAC 30 MG/ML 1 ML VIAL IV SCH (08:42)
[2025-02-21] MEDS: ENOXAPARIN 40 MG/0.4 ML SYRINGE (J1650 PER 10MG) SC SCH (08:42)
[2025-02-21] MEDS: DOCUSATE SODIUM 100 MG CAPSULE PO SCH (08:42)
[2025-02-21 08:52] LABS: FREE T4 1.01 NG/DL (0.89-1.76)
[2025-02-21 09:42] LABS: ALT/SGPT 37 U/L (7.0-40); AST/SGOT 31 U/L (<34); CALCIUM LEVEL 8.1 MG/DL (8.5-10.1); CARBON DIOXIDE LEVEL 19 MMOL/L (20-31); CHLORIDE LEVEL 105 MMOL/L (98-107); CHOLESTEROL LEVEL 270 MG/DL (<200); CHOLESTEROL RISK RATIO 13.30 (<5); CREATININE FOR GFR 0.34 MG/DL (0.55-1.30); GLOMERULAR FILTRATION RATE > 90.0 (>60); MAGNESIUM LEVEL 1.5 MG/DL (1.8-2.4); NON-HDL-C 249.7 MG/DL; POTASSIUM SERUM 3.9 MMOL/L (3.5-5.1); SODIUM LEVEL 133 MMOL/L (136-145); TRIGLYCERIDES LEVEL 1937 MG/DL (<150)
[2025-02-21 09:44] LABS: OSMOLALITY SERUM 308 MOSM/KG (275-295)
[2025-02-21] MEDS ORDERED: INSULIN REGULAR IN 0.9 % NACL 100 UNIT in IV 1 EA IV SCH (11:10)
[2025-02-21] MEDS ORDERED: INSULIN IV RATE CHANGE DOCUMENTATION ML/HR XX SCH (11:10)
[2025-02-21] MEDS: MAG SULF 1GM/100ML (MAG RUN) 1 GM in IV 1 EA IV SCH (11:45)
[2025-02-21] MEDS: D5W/0.9% SODIUM CHLORIDE 1,000 ML IV SCH (11:57)
[2025-02-21] MEDS: INSULIN REGULAR IN 0.9 % NACL 100 UNIT in IV 1 EA IV SCH (12:02)
[2025-02-21] MEDS: ONDANSETRON 4MG 2ML VIAL IV PRN (17:51)
[2025-02-21 17:58] LABS: CALCIUM LEVEL 7.5 MG/DL (8.5-10.1); CARBON DIOXIDE LEVEL 12 MMOL/L (20-31); CHLORIDE LEVEL 103 MMOL/L (98-107); CREATININE FOR GFR 0.35 MG/DL (0.55-1.30); GLOMERULAR FILTRATION RATE > 90.0 (>60); POTASSIUM SERUM 4.0 MMOL/L (3.5-5.1); SODIUM LEVEL 135 MMOL/L (136-145)
[2025-02-21 18:24] LABS: MAGNESIUM LEVEL 1.8 MG/DL (1.8-2.4)
[2025-02-21 20:52] LABS: CALCIUM LEVEL 8.1 MG/DL (8.5-10.1); CARBON DIOXIDE LEVEL 22 MMOL/L (20-31); CHLORIDE LEVEL 102 MMOL/L (98-107); CREATININE FOR GFR 0.39 MG/DL (0.55-1.30); GLOMERULAR FILTRATION RATE > 90.0 (>60); POTASSIUM SERUM 3.9 MMOL/L (3.5-5.1); SODIUM LEVEL 135 MMOL/L (136-145)
[2025-02-22] VITALS (31 sets, daily range): BP systolic 119–138; BP diastolic 58–90; TEMP 97.9–102.1; O2SAT 87–99
[2025-02-22 04:00] LABS: BASO # 0.0 10^3/uL (0.0-0.2); BASO % 0.3 % (0.0-1.0); EOS # 0.1 10^3/uL (0.0-0.5); EOS % 0.7 % (0.0-3.0); LYMPH # 2.1 10^3/uL (1.5-5.0); LYMPH % 24.0 % (24.0-44.0); MONO # 0.4 10^3/uL (0.0-0.8); MONO % 4.3 % (2.0-8.0); NEUTROPHILS # 6.1 10^3/uL (1.5-8.5); NEUTROPHILS % 70.4 % (36.0-66.0); PLATELET COUNT, AUTOMATED 216 10^3/uL (150-450)
[2025-02-22 04:23] LABS: CALCIUM LEVEL 7.5 MG/DL (8.5-10.1); CARBON DIOXIDE LEVEL 23 MMOL/L (20-31); CHLORIDE LEVEL 108 MMOL/L (98-107); CREATININE FOR GFR 0.51 MG/DL (0.55-1.30); GLOMERULAR FILTRATION RATE > 90.0 (>60); POTASSIUM SERUM 3.1 MMOL/L (3.5-5.1); SODIUM LEVEL 141 MMOL/L (136-145)
[2025-02-22 04:54] LABS: TRIGLYCERIDES LEVEL 596 MG/DL (<150)
[2025-02-22] MEDS: LR 1,000 ML IV SCH (05:54)
[2025-02-22] MEDS: POTASSIUM CHLORIDE 10MEQ SR TABLET PO SCH (08:25)
[2025-02-22 09:57] LABS: ALT/SGPT 27 U/L (7.0-40); AST/SGOT 27 U/L (<34); CALCIUM LEVEL 7.8 MG/DL (8.5-10.1); CARBON DIOXIDE LEVEL 22 MMOL/L (20-31); CHLORIDE LEVEL 106 MMOL/L (98-107); CREATININE FOR GFR 0.46 MG/DL (0.55-1.30); GLOMERULAR FILTRATION RATE > 90.0 (>60); MAGNESIUM LEVEL 1.8 MG/DL (1.8-2.4); POTASSIUM SERUM 3.8 MMOL/L (3.5-5.1); SODIUM LEVEL 139 MMOL/L (136-145)
[2025-02-22] MEDS: ATORVASTATIN 20 MG TAB PO SCH (10:50)
[2025-02-22] MEDS: FENOFIBRATE 145 MG TABLET PO SCH (10:50)
[2025-02-22] MEDS ORDERED: MORPHINE SULFATE TAB IMM. REL. 15 MG PO PRN (12:20)
[2025-02-22] MEDS ORDERED: NALOXONE INJ 0.4 MG/1 ML VIAL IV PRN (12:20)
[2025-02-22] MEDS: OMEGA-3 1000 MG CAPSULE PO SCH (12:54)
[2025-02-22] MEDS: MORPHINE SULFATE TAB EXT REL 30 MG PO ONE (12:55)
[2025-02-22] MEDS: MORPHINE SULFATE TAB IMM. REL. 15 MG PO ONE (19:00)
[2025-02-22] MEDS: MORPHINE SULFATE TAB EXT REL 30 MG PO SCH (21:09)
[2025-02-22] MEDS: ACETAMINOPHEN 325 MG TAB PO PRN (21:12)
[2025-02-22] MEDS: cefTRIAXone SOD 1 GM in DEXTROSE 5% (D5W) ADV/MINI-BAG 50 ML IV SCH (23:28)
[2025-02-23 00:08] LABS: ALT/SGPT 26 U/L (7.0-40); AST/SGOT 28 U/L (<34); CALCIUM LEVEL 8.1 MG/DL (8.5-10.1); CARBON DIOXIDE LEVEL 22 MMOL/L (20-31); CHLORIDE LEVEL 108 MMOL/L (98-107); CREATININE FOR GFR 0.52 MG/DL (0.55-1.30); GLOMERULAR FILTRATION RATE > 90.0 (>60); POTASSIUM SERUM 3.9 MMOL/L (3.5-5.1); SODIUM LEVEL 139 MMOL/L (136-145)
[2025-02-23 00:09] LABS: HCG, SERUM QUALITATIVE NEGATIVE (NEGATIVE)
[2025-02-23 00:23] LABS: BASO # 0.1 10^3/uL (0.0-0.2); BASO % 0.5 % (0.0-1.0); EOS # 0.4 10^3/uL (0.0-0.5); EOS % 3.1 % (0.0-3.0); LYMPH # 4.1 10^3/uL (1.5-5.0); LYMPH % 29.0 % (24.0-44.0); MONO # 0.8 10^3/uL (0.0-0.8); MONO % 6.0 % (2.0-8.0); NEUTROPHILS # 8.6 10^3/uL (1.5-8.5); NEUTROPHILS % 60.9 % (36.0-66.0)
[2025-02-23 03:40] VITALS: BP 135/79; TEMP 99.2; O2SAT 94
[2025-02-23 08:10] LABS: KETONE, URINE AUTO RFX NEGATIVE (NEGATIVE); LEUKOCYTE ESTERASE UR AUTO RFX NEGATIVE (NEGATIVE); NITRITE, URINE AUTO RFX NEGATIVE (NEGATIVE); RBC, URINE AUTO RFX 0 /HPF (0-3); SQUAM EPITHELIAL CELL UR AURFX 1 /HPF (0-6); WBC, URINE AUTO RFX 1 /HPF (0-3)
[2025-02-23] MEDS ORDERED: OMEG-28 PO (08:15)
[2025-02-23 08:33] LABS: BASO # 0.1 10^3/uL (0.0-0.2); BASO % 0.4 % (0.0-1.0); EOS # 0.4 10^3/uL (0.0-0.5); EOS % 3.2 % (0.0-3.0); LYMPH # 2.4 10^3/uL (1.5-5.0); LYMPH % 20.6 % (24.0-44.0); MONO # 0.6 10^3/uL (0.0-0.8); MONO % 5.3 % (2.0-8.0); NEUTROPHILS # 8.2 10^3/uL (1.5-8.5); NEUTROPHILS % 70.1 % (36.0-66.0); PLATELET COUNT, AUTOMATED 232 10^3/uL (150-450)
[2025-02-23 08:52] LABS: ESTIMATED AVERAGE GLUCOSE 166.0 MG/DL (60-110)
[2025-02-23] MEDS ORDERED: ENTER DRUG NAME HERE (PATIENT'S OWN MED) PO SCH (09:00)
[2025-02-23 09:12] LABS: ALT/SGPT 24 U/L (7.0-40); AST/SGOT 20 U/L (<34); CALCIUM LEVEL 8.3 MG/DL (8.5-10.1); CARBON DIOXIDE LEVEL 22 MMOL/L (20-31); CHLORIDE LEVEL 107 MMOL/L (98-107); CREATININE FOR GFR 0.51 MG/DL (0.55-1.30); GLOMERULAR FILTRATION RATE > 90.0 (>60); POTASSIUM SERUM 3.6 MMOL/L (3.5-5.1); SODIUM LEVEL 138 MMOL/L (136-145)
[2025-02-23 12:00] VITALS: BP 138/81; TEMP 98.7; O2SAT 96
[2025-02-23] MEDS: MOXIFLOXACIN 400 MG TAB PO SCH (13:33)
[2025-02-23] MEDS ORDERED: PERCOCET 5MG/325MG TAB PO PRN ×2 (14:55)
[2025-02-23 19:45] VITALS: BP 129/77; TEMP 97.7; O2SAT 97
[2025-02-23] MEDS: LanTUS (INSULIN GLARGINE INJ) 1 UNITS/0.01 ML SC SCH (22:40)
[2025-02-24 04:00] VITALS: BP 137/83; TEMP 98; O2SAT 97
[2025-02-24 07:22] LABS: CHOLESTEROL LEVEL 221 MG/DL (<200); CHOLESTEROL RISK RATIO 7.83 (<5); LDL CHOLESTEROL 130.4 MG/DL (<100); NON-HDL-C 192.8 MG/DL; TRIGLYCERIDES LEVEL 312 MG/DL (<150)
[2025-02-24 07:32] LABS: ESTIMATED AVERAGE GLUCOSE 171.0 MG/DL (60-110)
[2025-02-24 09:42] LABS: ALT/SGPT 31 U/L (7.0-40); AST/SGOT 29 U/L (<34); CALCIUM LEVEL 8.9 MG/DL (8.5-10.1); CARBON DIOXIDE LEVEL 22 MMOL/L (20-31); CHLORIDE LEVEL 107 MMOL/L (98-107); CREATININE FOR GFR 0.56 MG/DL (0.55-1.30); GLOMERULAR FILTRATION RATE > 90.0 (>60); POTASSIUM SERUM 3.9 MMOL/L (3.5-5.1); SODIUM LEVEL 141 MMOL/L (136-145)
[2025-02-24] MEDS ORDERED: PERCOCET PO (09:53)
[2025-02-24 09:55] LABS: BASO # 0.0 10^3/uL (0.0-0.2); BASO % 0.3 % (0.0-1.0); EOS # 0.4 10^3/uL (0.0-0.5); EOS % 3.8 % (0.0-3.0); LYMPH # 3.5 10^3/uL (1.5-5.0); LYMPH % 30.6 % (24.0-44.0); MONO # 0.6 10^3/uL (0.0-0.8); MONO % 5.6 % (2.0-8.0); NEUTROPHILS # 6.8 10^3/uL (1.5-8.5); NEUTROPHILS % 59.1 % (36.0-66.0); PLATELET COUNT, AUTOMATED 296 10^3/uL (150-450)
[2025-02-24] MEDS ORDERED: LANC30MI XX (10:07)
[2025-02-24] MEDS ORDERED: GLUC1TES2 XX (10:07)
[2025-02-24] MEDS ORDERED: ALCOPAD25 TOP (10:07)
[2025-02-24] MEDS ORDERED: BLOOKIT21 XX (10:07)
[2025-02-24] MEDS ORDERED: PEN-308 SC (10:10)
[2025-02-24] MEDS ORDERED: SEMA0.257 SQ (10:10)
== END 2025-02-24 11:30 | disposition home or self-care (01) | DRG 439 ==
LOC: M ED 23:22 → M ED INP 02-21 05:32 → M ICU 02-21 12:50 → M MS4PR 02-22 14:46
PROVIDERS: ADMIT Student in an Organized Health Care Education/Training Program; ATTEND General Practice
DX: K85.90 Acute pancreatitis without necrosis or infection, unspecified (principal); E87.1 Hypo-osmolality and hyponatremia; E11.9 Type 2 diabetes mellitus without complications; E78.1 Pure hyperglyceridemia; E66.812 Obesity, class 2; Z68.39 Body mass index [BMI] 39.0-39.9, adult; E87.6 Hypokalemia; Z79.899 Other long term (current) drug therapy